=== PATIENT | female | born 1995 | race Hispanic/Latino ===

== ENCOUNTER 2019-05-17 19:03 | Emergency (ER) | payer SELFPAY ==
[2019-05-17 20:38] LABS: Mean Corpuscular HGB CONC 31.7 g/dL (32.0-36.0); Mean Corpuscular Hemoglobin 27.5 pg (27.0-31.0); Mean Corpuscular Volume 86.7 fL (78.0-98.0); Mean Platelet Volume 8.9 fL (7.4-10.4); Platelet Count 219 thou/uL (130-400); RBC Distribution Width 13.7 % (11.5-14.5); Red Blood Cell (RBC) Count 4.34 mill/uL (4.20-5.40); White Blood Cell (WBC) Count 7.4 thou/uL (4.8-10.8)
[2019-05-17 20:49] LABS: ALT (SGPT) 10 U/L (8-55); AST (SGOT) 14 U/L (5-34); Albumin 4.3 g/dL (3.5-5.0); Alkaline Phosphatase 84 U/L (40-110); Anion Gap 13 mmol/L (10-20); BUN (Urea Nitrogen) 14 mg/dL (7.0-18.7); Bilirubin, Total 0.3 mg/dL (0.2-1.2); Calc. Creatinine Clearance 0 mL/min (70-130); Calcium 9.3 mg/dL (7.8-10.44); Carbon Dioxide 23 mmol/L (22-29); Chloride 109 mmol/L (98-107); Estimated GFR-MDRD Greater than 90; Globulin 4.1 g/dL (2.4-3.5); Glucose 83 mg/dL (70-105); Potassium 3.9 mmol/L (3.5-5.1); Protein, Total 8.4 g/dL (6.0-8.3); Sodium 141 mmol/L (136-145)
[2019-05-17] MEDS ORDERED: cefTRIAXone\\ROCEPHIN 1 GM VIAL ONE (21:08)
[2019-05-17 21:09] LABS: Bilirubin Negative (Negative); Blood, Urine Negative (Negative); Clarity Clear (Clear); Glucose, Urine (Dipstick) Negative (Negative); Leukocyte Small (Negative); Nitrite Negative (Negative); Protein, Urine (Dipstick) Negative (Neg-Trace); Urobilinogen 0.2 mg/dL (Less than 2)
[2019-05-17 21:10] LABS: Pregnancy Test - Urine (BHCG) POSITIVE (Negative); Pregu Control Background? CLEAR/WHITE (CLR/WHITE); Pregu Control Bar Appear? YES (CONTROL BAR); Specific Gravity 1.025 (1.002-1.036)
[2019-05-17 21:20] LABS: Band 2 % (5-11); Eosinophils 3 % (0-10); Lymphocytes 37 % (21-51); MDiff Complete? YES; Monocytes 3 % (0-10); Neutrophil 55 % (42-75); Platelet Morphology Comment Appears Adequate; RBC Morphology Normal
[2019-05-17 21:26] LABS: RBC/HPF 0-3 HPF (0-3)
[2019-05-17 21:27] LABS: Bacteria/HPF 3+ HPF (None Seen); Mucous/LPF Rare LPF (<2+)
== END 2019-05-17 21:36 | disposition home or self-care (01) ==
LOC: MADERS 19:03
DX: O23.01 Infections of kidney in pregnancy, first trimester (principal); N12 Tubulo-interstitial nephritis, not specified as acute or chronic; O26.851 Spotting complicating pregnancy, first trimester; Z3A.01 Less than 8 weeks gestation of pregnancy
CPT/HCPCS: 80053; 81003; 81015; 81025; 85025; 86900; 86901; 87077; 87086; 87186; 96372; 99284; J0696

== ENCOUNTER 2022-07-12 17:46 | Emergency (ER) | payer SELFPAY ==
[2022-07-12] MEDS ORDERED: Dexamethasone 4 MG TAB ONE (18:50)
== END 2022-07-12 20:20 | disposition home or self-care (01) ==
LOC: MADERS 17:46
DX: J06.9 Acute upper respiratory infection, unspecified (principal)
CPT/HCPCS: 87081; 87430; 87804; 99283; J8540